=== PATIENT | female | born 2000 | race Caucasian/White ===

== ENCOUNTER 2023-01-04 04:21 | Emergency (ER) | payer BC ==
[~2023-01-04] VITALS: Ht 170.2 cm; Wt 62.1 kg
[2023-01-04 04:45] VITALS: BP_SYST 107; PULSE 77; RESP 16; TEMP 97; O2SAT 99
[2023-01-04] MEDS ORDERED: TOBR5DRO7 LEFT EYE (05:18)
[2023-01-04 05:32] VITALS: BP_SYST 107; PULSE 75; RESP 16; TEMP 97; O2SAT 99
== END 2023-01-04 06:14 | disposition home or self-care (01) ==
LOC: SED 04:21
DX: H10.9 Unspecified conjunctivitis (principal); H57.12 Ocular pain, left eye; M79.662 Pain in left lower leg; Z79.899 Other long term (current) drug therapy
CPT/HCPCS: 99283